=== PATIENT | male | born 1975 | race Caucasian/White ===

== ENCOUNTER 2023-09-29 20:06 | Inpatient (IN) | payer MEDICAID ==
[~2023-09-29] VITALS: Ht 172.7 cm; Wt 90.3 kg
[2023-09-29 20:42] LABS: BASOPHILS % (AUTO) 0.8 % (0.0-2.0); EOSINOPHILS % (AUTO) 0.8 % (1.0-6.0); HEMATOCRIT 46.1 % (41-53); HEMOGLOBIN 15.7 g/dL (13.5-17.5); LYMPHOCYTES # (AUTO) 2.3 K/uL (1.0-4.8); LYMPHOCYTES % (AUTO) 21.6 % (22.0-44.0); MEAN CORPUSCULAR HEMOGLOBIN 30.1 pg (26.0-34.0); MEAN CORPUSCULAR VOLUME 89 fL (80-100); MONOCYTES # (AUTO) 0.6 K/uL (0.1-1.0); MONOCYTES % (AUTO) 5.4 % (2.0-9.0); NEUTROPHILS # (AUTO) 7.7 K/uL (1.8-7.7); NEUTROPHILS % (AUTO) 71.4 % (40.0-70.0); PLATELET COUNT (AUTO) 223 K/uL (150-450); RED BLOOD CELL COUNT(AUTO) 5.21 MIL/uL (4.50-5.90); WHITE BLOOD COUNT (AUTO) 10.8 K/uL (4.5-11.0)
[2023-09-29 20:50] LABS: ANION GAP 10 mmol/L (8-16); CALCIUM, TOTAL 9.5 mg/dL (8.8-10.5); CARBON DIOXIDE 27 mmol/L (22-29); CHLORIDE 101 mmol/L (98-107); CREATININE 1.13 mg/dL (0.60-1.30); GLOMERULAR FILTR. RATE CALC > 60 mL/min (>60); GLUCOSE,RANDOM 117 mg/dL (70-110); POTASSIUM 4.1 mmol/L (3.5-5.1); SODIUM SERUM 138 mmol/L (136-145); UREA NITROGEN, BLOOD 18 mg/dL (7-18)
[2023-09-29 20:58] LABS: LACTIC ACID 1.2 mmol/L (0.4-2.0)
[2023-09-29 20:59] LABS: ALCOHOL, BLOOD (SERUM) < 3 mg/dL (0-10); TROPONIN I-HIGH SENSITIVITY Less Than 4 ng/L (<76)
[2023-09-29] MEDS ORDERED: ZOLPIDEM TARTRATE 10 MG TABLET PO PRN (21:00)
[2023-09-29] MEDS ORDERED: HALOPERIDOL 5 MG TABLET PO PRN (21:00)
[2023-09-29 21:01] LABS: ACETAMINOPHEN < 2 mcg/mL (10-30); ALANINE AMINOTRANSFERASE 27 U/L (12-78); ALBUMIN 4.2 g/dL (3.4-5.0); ALKALINE PHOSPHATASE 77 U/L (46-116); ASPARTATE AMINOTRANSFERASE 21 U/L (15-37); BILIRUBIN,TOTAL 0.4 mg/dL (0.1-1.0); CREATINE KINASE, TOTAL ONLY 76 U/L (39-308); LIPASE 27 U/L (16-77); TOTAL PROTEIN, SERUM 8.7 g/dL (6.4-8.2)
[2023-09-29 21:05] LABS: SALICYLATE 2.7 mg/dL (2.8-20.0)
[2023-09-29 21:11] LABS: APPEARANCE,URINE CLEAR (CLEAR); BILIRUBIN,URINE NEGATIVE (NEGATIVE); COLOR,URINE LIGHT YELLOW (YELLOW); GLUCOSE, URINE (UA) NEGATIVE (NEGATIVE); KETONES,URINE NEGATIVE (NEGATIVE); LEUKOCYTE ESTERASE ,URINE NEGATIVE (NEGATIVE); NITRATE,URINE NEGATIVE (NEGATIVE); OCCULT BLOOD,URINE NEGATIVE (NEGATIVE); PROTEIN,URINE NEGATIVE (NEGATIVE); SPECIFIC GRAVITIY, URINE 1.018 (1.003-1.030); UROBILINOGEN,URINE <=1.0 mg/dL (<=1.0)
[2023-09-29 21:14] LABS: BACTERIA,URINE None Seen /HPF (None Seen); COVID AG,FIA SOURCE NASAL SWAB; RBC,URINE None Seen /HPF (0-2); SQUAMOUS EPITHELIAL CELL,UR None Seen /LPF (None Seen); WBC,URINE None Seen /HPF (0-5)
[2023-09-29 21:18] LABS: ALCOHOL, URINE DRUG SCREEN NEGATIVE (NEGATIVE); AMPHET/METH SCREEN,URINE NEGATIVE (NEGATIVE); BARBITURATE SCREEN, URINE NEGATIVE (NEGATIVE); BENZODIAZEPINES SCREEN,URINE NEGATIVE (NEGATIVE); CANNABINOID SCREEN,URINE POSITIVE (NEGATIVE); COCAINE SCREEN,URINE NEGATIVE (NEGATIVE); METHADONE SCREEN, URINE NEGATIVE (NEGATIVE); OPIATE SCREEN,URINE NEGATIVE (NEGATIVE); PHENCYCLIDINE SCREEN,URINE NEGATIVE (NEGATIVE)
[2023-09-29 21:28] LABS: SARS-COV2 (COVID) ANTIGEN,FIA Negative (Negative)
[2023-09-30 04:47] VITALS: BP 122/67; PULSE 72; RESP 17; TEMP 97.1; O2SAT 98
[2023-09-30 08:26] VITALS: BP 112/58; PULSE 63; RESP 18; TEMP 97.9; O2SAT 97
[2023-09-30] MEDS: FLUoxetine HCL 20 MG CAPSULE PO SCH (11:33)
[2023-09-30] MEDS ORDERED: PETROLATUM,WHITE 28 GM JELLY TP PRN (13:15)
[2023-09-30] MEDS ORDERED: GuaiFENesin/D-METHORPHAN [SUGAR-FREE] 200-20MG/10 ML SYRUP UDCUP PO PRN (13:15)
[2023-09-30] MEDS ORDERED: ONDANSETRON HCL 4 MG TABLET PO PRN (13:15)
[2023-09-30] MEDS ORDERED: MAGNESIUM HYDROXIDE SUSPENSION 30 ML UDCUP PO PRN (13:15)
[2023-09-30] MEDS ORDERED: ALBUTEROL SULFATE HFA 90 MCG/PUFF 8 GM INHALER IH PRN (13:15)
[2023-09-30] MEDS ORDERED: CloNIDine HCL 0.1 MG TABLET PO PRN (13:15)
[2023-09-30] MEDS ORDERED: DOCUSATE SODIUM 100 MG CAPSULE PO PRN (13:15)
[2023-09-30] MEDS ORDERED: MAG HYDROX/ALUMINUM HYD/SIMETH ES 30 ML SUSPENSION UDCUP PO PRN (13:15)
[2023-09-30] MEDS ORDERED: IBUPROFEN 400 MG TABLET PO PRN (13:15)
[2023-09-30] MEDS ORDERED: LOPERAMIDE HCL 2 MG CAPSULE PO PRN (13:15)
[2023-09-30] MEDS: LORazepam 2 MG TABLET PO PRN (16:13)
[2023-09-30] MEDS: RisperiDONE 2 MG TABLET PO SCH (16:13)
[2023-09-30 21:03] VITALS: BP 99/56; PULSE 75; RESP 18; TEMP 97.3; O2SAT 98
[2023-10-01 08:15] VITALS: BP 108/62; PULSE 65; RESP 18; TEMP 97.8; O2SAT 97
[2023-10-01 09:06] LABS: HEMOGLOBIN A1C 5.5 % (3.8-5.6)
[2023-10-01 09:27] LABS: THYROID STIMULATING HORMONE 1.62 uIU/mL (0.36-3.74)
[2023-10-01 09:38] LABS: CHOL/HDL RATIO 3.9 (4.2-7.3)
[2023-10-01 21:02] VITALS: BP 107/88; PULSE 76; RESP 17; TEMP 97.6; O2SAT 97
[2023-10-02 10:17] VITALS: BP 100/63; PULSE 63; RESP 17; TEMP 97.3; O2SAT 97
[2023-10-02 20:34] VITALS: BP 123/83; PULSE 73; RESP 19; TEMP 95.7; O2SAT 97
[2023-10-03 08:28] VITALS: BP 118/63; PULSE 71; RESP 17; TEMP 97.7; O2SAT 96
[2023-10-03 20:18] VITALS: BP 123/69; PULSE 81; RESP 18; TEMP 98.2; O2SAT 97
[2023-10-04 08:34] VITALS: BP 112/65; PULSE 69; RESP 18; TEMP 97.8; O2SAT 97
[2023-10-04] MEDS: NICOTINE 14 MG/24 HOUR PATCH TD PRN (10:01)
[2023-10-04] MEDS: ACETAMINOPHEN 325 MG TABLET PO PRN (15:37)
[2023-10-04 15:43] VITALS: RESP 19
[2023-10-04 15:54] VITALS: RESP 17
[2023-10-04 16:37] VITALS: RESP 16
[2023-10-04 20:28] VITALS: BP 115/74; PULSE 82; RESP 18; TEMP 98.2; O2SAT 96
[2023-10-05 08:31] VITALS: BP 108/63; PULSE 69; RESP 18; TEMP 97.8; O2SAT 96
[2023-10-05 20:42] VITALS: BP 116/75; PULSE 79; RESP 18; TEMP 97.8; O2SAT 98
[2023-10-06 08:53] VITALS: BP 110/62; PULSE 67; RESP 18; TEMP 97.8; O2SAT 97
[2023-10-06 20:37] VITALS: BP 119/76; PULSE 76; RESP 18; TEMP 97.6
[2023-10-07 09:05] VITALS: BP 112/16; PULSE 70; RESP 16; TEMP 97.5; O2SAT 96
[2023-10-07] MEDS ORDERED: RISP-32 PO (12:18)
[2023-10-07] MEDS ORDERED: FLUO-177 PO (12:22)
[2023-10-08] MEDS ORDERED: FLUO20CA36 PO (06:11)
[2023-10-08] MEDS ORDERED: RISP2TAB45 PO (06:11)
== END 2023-10-07 16:59 | disposition home or self-care (01) | DRG 750 ==
LOC: EMS 20:09 → B2S 09-30 02:13
PROVIDERS: ADMIT Psychiatry & Neurology Child & Adolescent Psychiatry; ATTEND Psychiatry & Neurology Child & Adolescent Psychiatry
PROC: GZHZZZZ Group Psychotherapy (ICD-10-PCS; principal; 2023-10-01)
PROC: GZ52ZZZ Individual Psychotherapy, Cognitive (ICD-10-PCS; 2023-10-01)
DX: F25.1 Schizoaffective disorder, depressive type (principal); G92.9 Unspecified toxic encephalopathy; I95.9 Hypotension, unspecified; R45.851 Suicidal ideations; F11.10 Opioid abuse, uncomplicated; Z20.822 Contact with and (suspected) exposure to COVID-19; R73.9 Hyperglycemia, unspecified; T50.902A Poisoning by unspecified drugs, medicaments and biological substances, intentional self-harm, initial encounter; Z79.899 Other long term (current) drug therapy; Y92.89 Other specified places as the place of occurrence of the external cause
CPT/HCPCS: 80053; 80061; 80307; 81001; 82550; 83036; 83605; 83690; 84443; 84484; 85025; 93005; G0480; G0481

== ENCOUNTER 2024-01-17 23:48 | Inpatient (IN) | payer MEDICAID, OTHER ==
[~2024-01-17] VITALS: Ht 172.7 cm; Wt 117.2 kg
[~2024-01-17 23:48] MED LIST: FLUO-177 PO; FLUO-418 PO; RISP-32 PO; RISP2TAB45 PO
[2024-01-18 00:02] VITALS: O2SAT 96
[2024-01-18 02:54] LABS: BASOPHILS % (AUTO) 0.8 % (0.0-2.0); EOSINOPHILS % (AUTO) 1.7 % (1.0-6.0); HEMATOCRIT 45.9 % (41-53); HEMOGLOBIN 15.3 g/dL (13.5-17.5); LYMPHOCYTES # (AUTO) 3.2 K/uL (1.0-4.8); LYMPHOCYTES % (AUTO) 24.8 % (22.0-44.0); MEAN CORPUSCULAR HEMOGLOBIN 29.9 pg (26.0-34.0); MEAN CORPUSCULAR HGB CONC 33.4 G/dL (31.0-37.0); MEAN CORPUSCULAR VOLUME 89 fL (80-100); MONOCYTES # (AUTO) 0.8 K/uL (0.1-1.0); MONOCYTES % (AUTO) 6.5 % (2.0-9.0); NEUTROPHILS # (AUTO) 8.5 K/uL (1.8-7.7); NEUTROPHILS % (AUTO) 66.2 % (40.0-70.0); PLATELET COUNT (AUTO) 278 K/uL (150-450); RED BLOOD CELL COUNT(AUTO) 5.13 MIL/uL (4.50-5.90); RED CELL DISTRIBUTION WIDTH 14.6 % (11.5-14.5); WHITE BLOOD COUNT (AUTO) 12.8 K/uL (4.5-11.0)
[2024-01-18 03:04] LABS: ANION GAP 14 mmol/L (8-16); CALCIUM, TOTAL 9.2 mg/dL (8.8-10.5); CARBON DIOXIDE 24 mmol/L (22-29); CHLORIDE 99 mmol/L (98-107); CREATININE 1.36 mg/dL (0.60-1.30); GLOMERULAR FILTR. RATE CALC 56 mL/min (>60); GLUCOSE,RANDOM 114 mg/dL (70-110); POTASSIUM 3.8 mmol/L (3.5-5.1); SODIUM SERUM 137 mmol/L (136-145); UREA NITROGEN, BLOOD 24 mg/dL (7-18)
[2024-01-18 03:13] LABS: ALCOHOL, BLOOD (SERUM) < 3 mg/dL (0-10)
[2024-01-18 03:27] LABS: PH,URINE DRUG SCREEN 5.5 (5.0-8.0)
[2024-01-18 03:35] LABS: ALCOHOL, URINE DRUG SCREEN NEGATIVE (NEGATIVE); AMPHET/METH SCREEN,URINE POSITIVE (NEGATIVE); BARBITURATE SCREEN, URINE NEGATIVE (NEGATIVE); BENZODIAZEPINES SCREEN,URINE NEGATIVE (NEGATIVE); CANNABINOID SCREEN,URINE POSITIVE (NEGATIVE); COCAINE SCREEN,URINE NEGATIVE (NEGATIVE); METHADONE SCREEN, URINE NEGATIVE (NEGATIVE); OPIATE SCREEN,URINE NEGATIVE (NEGATIVE); PHENCYCLIDINE SCREEN,URINE NEGATIVE (NEGATIVE)
[2024-01-18] MEDS: RisperiDONE CONC 2 MG/2 ML SOLUTION ORAL.SYG PO ONE (03:45)
[2024-01-18] MEDS ORDERED: HALOPERIDOL 5 MG TABLET PO PRN (04:00)
[2024-01-18] MEDS ORDERED: ZOLPIDEM TARTRATE 10 MG TABLET PO PRN (04:00)
[2024-01-18] MEDS ORDERED: LORazepam 2 MG TABLET PO PRN (04:00)
[2024-01-18 05:05] LABS: APPEARANCE,URINE TURBID (CLEAR); BILIRUBIN,URINE NEGATIVE (NEGATIVE); COLOR,URINE LIGHT ORANGE (YELLOW); GLUCOSE, URINE (UA) NEGATIVE (NEGATIVE); KETONES,URINE NEGATIVE (NEGATIVE); LEUKOCYTE ESTERASE ,URINE NEGATIVE (NEGATIVE); NITRATE,URINE NEGATIVE (NEGATIVE); OCCULT BLOOD,URINE NEGATIVE (NEGATIVE); PH,URINE 5.5 (5.0-8.0); PROTEIN,URINE 30-70 mg/dL (NEGATIVE); SPECIFIC GRAVITIY, URINE 1.036 (1.003-1.030); UROBILINOGEN,URINE <=1.0 mg/dL (<=1.0)
[2024-01-18 06:32] LABS: COVID AG,FIA SOURCE NASAL SWAB
[2024-01-18 07:42] LABS: SARS-COV2 (COVID) ANTIGEN,FIA Negative (Negative)
[2024-01-18 08:30] VITALS: BP 111/74; PULSE 81; RESP 17; TEMP 97.4; O2SAT 99
[2024-01-18] MEDS ORDERED: ONDANSETRON HCL 4 MG TABLET PO PRN (09:00)
[2024-01-18] MEDS ORDERED: DOCUSATE SODIUM 100 MG CAPSULE PO PRN (09:00)
[2024-01-18] MEDS ORDERED: CloNIDine HCL 0.1 MG TABLET PO PRN (09:00)
[2024-01-18] MEDS ORDERED: BACITRACIN 28 GM OINTMENT TP PRN (09:00)
[2024-01-18] MEDS ORDERED: BENZOCAINE/MENTHOL LOZENGE PO PRN (09:00)
[2024-01-18] MEDS ORDERED: LOPERAMIDE HCL 2 MG CAPSULE PO PRN (09:00)
[2024-01-18] MEDS ORDERED: MAGNESIUM HYDROXIDE SUSPENSION 30 ML UDCUP PO PRN (09:00)
[2024-01-18] MEDS ORDERED: ACETAMINOPHEN 325 MG TABLET PO PRN (09:00)
[2024-01-18] MEDS ORDERED: ALBUTEROL SULFATE HFA 90 MCG/PUFF 8 GM INHALER IH PRN (09:00)
[2024-01-18] MEDS ORDERED: MAG HYDROX/ALUMINUM HYD/SIMETH ES 30 ML SUSPENSION UDCUP PO PRN (09:00)
[2024-01-18] MEDS ORDERED: OMEPRAZOLE 20 MG CAPSULE PO PRN (09:00)
[2024-01-18] MEDS ORDERED: PETROLATUM,WHITE 28 GM JELLY TP PRN (09:00)
[2024-01-18] MEDS: NICOTINE 21 MG/24 HOUR PATCH TD SCH (09:45)
[2024-01-18] MEDS: OLANZapine 10 MG TABLET PO SCH (20:12)
[2024-01-18 20:24] VITALS: BP 115/61; PULSE 79; RESP 20; TEMP 97.3; O2SAT 97
[2024-01-19 08:33] VITALS: BP 142/69; PULSE 71; RESP 18; TEMP 97.2; O2SAT 96
[2024-01-19] MEDS: BuPROPion HCL XL 150 MG ER TABLET PO SCH (09:04)
[2024-01-19 20:25] VITALS: BP 107/68; PULSE 76; RESP 17; TEMP 98; O2SAT 98
[2024-01-20 08:21] VITALS: BP 121/61; PULSE 68; RESP 18; TEMP 97.4; O2SAT 98
[2024-01-20] MEDS ORDERED: NICOTINE 21 MG/24 HOUR PATCH TD PRN (09:30)
[2024-01-20 21:16] VITALS: BP 119/82; PULSE 67; RESP 18; TEMP 97.6; O2SAT 98
[2024-01-21 09:27] VITALS: BP 108/60; PULSE 67; RESP 17; TEMP 97.9; O2SAT 97
[2024-01-21 22:05] VITALS: BP 106/62; PULSE 71; RESP 17; TEMP 97.2; O2SAT 97
[2024-01-22 08:25] VITALS: BP 100/69; PULSE 68; RESP 18; TEMP 96.8; O2SAT 97
[2024-01-22] MEDS: ETHYL ALCOHOL 62% ANTISEPTIC NASAL SANITIZER 0.6 ML AMPUL NASAL SCH (20:20)
[2024-01-22 20:54] VITALS: BP 110/64; PULSE 74; RESP 18; TEMP 97; O2SAT 98
[2024-01-22] MEDS: CHLORHEXIDINE GLUCONATE 2% TOWELETTE [2'S/6'S] TP SCH (21:15)
[2024-01-23 08:54] VITALS: BP 122/67; PULSE 70; RESP 17; TEMP 96.9; O2SAT 96
[2024-01-23 21:13] VITALS: BP 109/74; PULSE 80; RESP 17; TEMP 97.6; O2SAT 96
[2024-01-24 10:00] VITALS: BP 100/60; PULSE 77; RESP 18; TEMP 97.2; O2SAT 97
[2024-01-24 20:46] VITALS: BP 150/150; PULSE 95; RESP 16; TEMP 97.6; O2SAT 97
[2024-01-25 08:35] VITALS: BP 127/68; PULSE 81; RESP 18; TEMP 97.7; O2SAT 96
[2024-01-25 20:42] VITALS: BP 109/60; RESP 19; TEMP 98; O2SAT 100
[2024-01-26 08:27] VITALS: BP 117/72; PULSE 76; RESP 17; TEMP 97.5; O2SAT 96
[2024-01-26 20:40] VITALS: BP 121/75; PULSE 78; RESP 16; TEMP 97.3; O2SAT 95
[2024-01-27 08:11] VITALS: BP 116/72; PULSE 74; RESP 17; TEMP 97.2; O2SAT 97
[2024-01-27 20:35] VITALS: BP 144/80; PULSE 87; RESP 20; TEMP 97.9; O2SAT 96
[2024-01-28 08:17] VITALS: BP 112/67; PULSE 69; RESP 17; TEMP 97; O2SAT 96
[2024-01-28 21:03] VITALS: BP 104/67; PULSE 95; RESP 16; TEMP 97.2; O2SAT 96
[2024-01-28] MEDS: IBUPROFEN 600 MG TABLET PO PRN (23:11)
[2024-01-29 08:41] VITALS: BP 100/62; PULSE 71; RESP 18; TEMP 96.7; O2SAT 97
[2024-01-29 20:30] VITALS: BP 118/69; PULSE 87; RESP 17; TEMP 97; O2SAT 97
[2024-01-30 08:58] VITALS: BP 128/78; PULSE 82; RESP 16; TEMP 97.5; O2SAT 96
[2024-01-30 20:47] VITALS: BP 108/70; PULSE 77; RESP 18; TEMP 96.6; O2SAT 95
[2024-01-31 09:02] VITALS: BP 113/71; PULSE 84; RESP 18; TEMP 98; O2SAT 97
[2024-01-31] MEDS ORDERED: BUPR-514 PO (12:09)
[2024-01-31] MEDS ORDERED: OLAN10TA74 PO (12:10)
== END 2024-01-31 14:22 | disposition home or self-care (01) | DRG 750 ==
LOC: EMS 23:50 → B2S 01-18 07:02 → UNDOADMIN 01-18 07:03 → B2S 01-18 07:03
PROVIDERS: ADMIT Psychiatry & Neurology Psychiatry; ATTEND Psychiatry & Neurology Psychiatry
DX: F20.9 Schizophrenia, unspecified (principal); R45.851 Suicidal ideations; E66.9 Obesity, unspecified; G47.00 Insomnia, unspecified; N28.9 Disorder of kidney and ureter, unspecified; Z20.822 Contact with and (suspected) exposure to COVID-19; K59.00 Constipation, unspecified; F15.10 Other stimulant abuse, uncomplicated; F32.A Depression, unspecified; F41.9 Anxiety disorder, unspecified; F12.90 Cannabis use, unspecified, uncomplicated; Z87.891 Personal history of nicotine dependence; Z68.39 Body mass index [BMI] 39.0-39.9, adult
CPT/HCPCS: 80048; 80307; 81003; 85025; 87081; 99285; G0480

== ENCOUNTER 2024-02-18 11:14 | Emergency (ER) | payer MEDICAID, OTHER ==
[~2024-02-18] VITALS: Ht 170.2 cm; Wt 96.0 kg
[~2024-02-18 11:14] MED LIST changes: +BUPR-514 PO; -FLUO-177 PO; -FLUO-418 PO; +OLAN10TA74 PO; -RISP-32 PO; -RISP2TAB45 PO
[2024-02-18 11:25] VITALS: BP 143/88; PULSE 85; RESP 16; TEMP 98.7; O2SAT 98
[2024-02-18 11:59] LABS: BASOPHILS % (AUTO) 0.8 % (0.0-2.0); EOSINOPHILS % (AUTO) 4.2 % (1.0-6.0); HEMATOCRIT 42.4 % (41-53); HEMOGLOBIN 13.9 g/dL (13.5-17.5); LYMPHOCYTES # (AUTO) 1.3 K/uL (1.0-4.8); LYMPHOCYTES % (AUTO) 17.6 % (22.0-44.0); MEAN CORPUSCULAR HEMOGLOBIN 29.9 pg (26.0-34.0); MEAN CORPUSCULAR HGB CONC 32.8 G/dL (31.0-37.0); MEAN CORPUSCULAR VOLUME 91 fL (80-100); MONOCYTES # (AUTO) 0.5 K/uL (0.1-1.0); MONOCYTES % (AUTO) 7.1 % (2.0-9.0); NEUTROPHILS # (AUTO) 5.1 K/uL (1.8-7.7); NEUTROPHILS % (AUTO) 70.3 % (40.0-70.0); PLATELET COUNT (AUTO) 203 K/uL (150-450); RED BLOOD CELL COUNT(AUTO) 4.64 MIL/uL (4.50-5.90); RED CELL DISTRIBUTION WIDTH 14.3 % (11.5-14.5); WHITE BLOOD COUNT (AUTO) 7.2 K/uL (4.5-11.0)
[2024-02-18 12:08] LABS: ANION GAP 8 mmol/L (8-16); CALCIUM, TOTAL 8.5 mg/dL (8.8-10.5); CARBON DIOXIDE 31 mmol/L (22-29); CHLORIDE 104 mmol/L (98-107); CREATININE 0.97 mg/dL (0.60-1.30); GLOMERULAR FILTR. RATE CALC > 60 mL/min (>60); GLUCOSE,RANDOM 92 mg/dL (70-110); POTASSIUM 4.2 mmol/L (3.5-5.1); SODIUM SERUM 142 mmol/L (136-145); UREA NITROGEN, BLOOD 19 mg/dL (7-18)
[2024-02-18 12:39] LABS: ALCOHOL, BLOOD (SERUM) < 3 mg/dL (0-10)
[2024-02-18] MEDS: ACETAMINOPHEN 325 MG TABLET PO ONE (13:18)
[2024-02-18 13:55] LABS: PH,URINE DRUG SCREEN 7.5 (5.0-8.0)
[2024-02-18 13:56] LABS: COVID AG,FIA SOURCE NASAL SWAB
[2024-02-18 14:08] LABS: ALCOHOL, URINE DRUG SCREEN NEGATIVE (NEGATIVE); AMPHET/METH SCREEN,URINE POSITIVE (NEGATIVE); BARBITURATE SCREEN, URINE NEGATIVE (NEGATIVE); BENZODIAZEPINES SCREEN,URINE NEGATIVE (NEGATIVE); CANNABINOID SCREEN,URINE POSITIVE (NEGATIVE); COCAINE SCREEN,URINE NEGATIVE (NEGATIVE); METHADONE SCREEN, URINE NEGATIVE (NEGATIVE); OPIATE SCREEN,URINE NEGATIVE (NEGATIVE); PHENCYCLIDINE SCREEN,URINE NEGATIVE (NEGATIVE)
[2024-02-18 14:22] LABS: SARS-COV2 (COVID) ANTIGEN,FIA Negative (Negative)
== END 2024-02-18 19:09 | disposition home or self-care (01) ==
LOC: EMS 11:14
DX: F20.9 Schizophrenia, unspecified (principal); R45.851 Suicidal ideations; F17.210 Nicotine dependence, cigarettes, uncomplicated; F19.10 Other psychoactive substance abuse, uncomplicated; Z20.822 Contact with and (suspected) exposure to COVID-19
CPT/HCPCS: 99283; 87426; 80048; 85025; 36415; 80307; G0480

== ENCOUNTER 2024-02-19 05:25 | Inpatient (IN) | payer MEDICAID ==
[~2024-02-19] VITALS: Ht 175.3 cm; Wt 122.3 kg
[2024-02-19] MEDS ORDERED: HALOPERIDOL 5 MG TABLET PO PRN (05:30)
[2024-02-19] MEDS ORDERED: ZOLPIDEM TARTRATE 10 MG TABLET PO PRN (05:30)
[2024-02-19 06:55] VITALS: BP 134/69; PULSE 97; RESP 18; TEMP 97.6; O2SAT 98
[2024-02-19] MEDS ORDERED: NICOTINE POLACRILEX 2 MG LOZENGE PO PRN (07:45)
[2024-02-19 08:20] VITALS: RESP 18
[2024-02-19] MEDS: BACITRACIN 28 GM OINTMENT TP SCH (09:58)
[2024-02-19] MEDS ORDERED: ONDANSETRON 4 MG TABLET PO PRN (10:30)
[2024-02-19] MEDS ORDERED: DOCUSATE SODIUM 100 MG CAPSULE PO PRN (10:30)
[2024-02-19] MEDS ORDERED: MAGNESIUM HYDROXIDE SUSPENSION 30 ML UDCUP PO PRN (10:30)
[2024-02-19] MEDS ORDERED: IBUPROFEN 600 MG TABLET PO PRN (10:30)
[2024-02-19] MEDS ORDERED: LOPERAMIDE HCL 2 MG CAPSULE PO PRN (10:30)
[2024-02-19] MEDS ORDERED: BENZOCAINE/MENTHOL LOZENGE PO PRN (10:30)
[2024-02-19] MEDS ORDERED: CloNIDine HCL 0.1 MG TABLET PO PRN (10:30)
[2024-02-19] MEDS ORDERED: PETROLATUM,WHITE 28 GM JELLY TP PRN (10:30)
[2024-02-19] MEDS ORDERED: ACETAMINOPHEN 325 MG TABLET PO PRN (10:30)
[2024-02-19] MEDS ORDERED: ALBUTEROL SULFATE HFA 90 MCG/PUFF 8 GM INHALER IH PRN (10:30)
[2024-02-19] MEDS ORDERED: OMEPRAZOLE 20 MG CAPSULE PO PRN (10:30)
[2024-02-19] MEDS ORDERED: MAG HYDROX/ALUMINUM HYD/SIMETH ES 30 ML SUSPENSION UDCUP PO PRN (10:30)
[2024-02-19] MEDS ORDERED: BACITRACIN 28 GM OINTMENT TP PRN (10:30)
[2024-02-19] MEDS: OLANZapine 10 MG TABLET PO SCH (20:35)
[2024-02-20 08:19] VITALS: BP 102/63; PULSE 69; RESP 16; TEMP 97.2; O2SAT 96
[2024-02-20] MEDS: BuPROPion HCL XL 150 MG ER TABLET PO SCH (09:05)
[2024-02-20] MEDS: ETHYL ALCOHOL 62% ANTISEPTIC NASAL SANITIZER 0.6 ML AMPUL NASAL SCH (09:45)
[2024-02-20] MEDS: CHLORHEXIDINE GLUCONATE 2% TOWELETTE [2'S/6'S] TP SCH (21:20)
[2024-02-20 21:57] VITALS: BP 106/62; PULSE 74; RESP 16; TEMP 97.5; O2SAT 97
[2024-02-21 08:22] VITALS: BP 116/69; PULSE 76; RESP 19; TEMP 96.6; O2SAT 97
[2024-02-21 10:01] LABS: HEMOGLOBIN A1C 5.6 % (3.8-5.6)
[2024-02-21 10:48] LABS: CHOL/HDL RATIO 3.5 (4.2-7.3); FREE T4 (FREE THYROXINE) 1.19 ng/dL (0.76-1.46); THYROID STIMULATING HORMONE 2.2 uIU/mL (0.36-3.74)
[2024-02-21 20:45] VITALS: BP 111/74; PULSE 81; RESP 17; TEMP 97.2; O2SAT 95
[2024-02-22 08:20] VITALS: BP 114/65; PULSE 80; RESP 18; TEMP 97.4; O2SAT 98
[2024-02-22 21:26] VITALS: BP 99/74; PULSE 70; RESP 18; TEMP 97.3; O2SAT 98
[2024-02-23 09:58] VITALS: BP 101/69; PULSE 80; RESP 18; TEMP 97.6; O2SAT 96
[2024-02-23 20:50] VITALS: BP 115/63; PULSE 88; RESP 16; TEMP 97.5; O2SAT 96
[2024-02-24 08:45] VITALS: BP 107/60; PULSE 70; RESP 18; TEMP 97.3; O2SAT 99
[2024-02-24 20:36] VITALS: BP 110/63; PULSE 72; RESP 17; TEMP 98.1; O2SAT 98
[2024-02-25 08:40] VITALS: BP 143/81; PULSE 75; RESP 18; TEMP 97.2; O2SAT 98
[2024-02-25 20:37] VITALS: BP 126/77; PULSE 86; RESP 17; TEMP 98; O2SAT 97
[2024-02-26 08:27] VITALS: BP 125/69; PULSE 70; RESP 18; TEMP 98.3; O2SAT 97
[2024-02-26 22:23] VITALS: BP 123/63; PULSE 79; RESP 18; TEMP 98.3
[2024-02-27 15:39] VITALS: BP 131/66; PULSE 76; RESP 18; TEMP 97; O2SAT 97
[2024-02-27 20:09] VITALS: BP 120/77; PULSE 83; RESP 18; TEMP 97.3; O2SAT 97
[2024-02-28 08:57] VITALS: BP 126/80; PULSE 85; RESP 17; TEMP 98; O2SAT 99
[2024-02-28 20:38] VITALS: BP 128/76; PULSE 86; RESP 16; TEMP 98.2; O2SAT 99
[2024-02-28] MEDS: LORazepam 2 MG TABLET PO PRN (23:30)
[2024-02-29 10:25] VITALS: BP 111/86; PULSE 87; RESP 17; TEMP 97.3; O2SAT 98
[2024-02-29 21:00] VITALS: BP 117/83; PULSE 94; RESP 18; TEMP 97; O2SAT 98
[2024-03-01 08:34] VITALS: BP 107/61; PULSE 74; RESP 19; TEMP 97.7; O2SAT 97
[2024-03-01 21:24] VITALS: BP 129/83; PULSE 96; RESP 18; TEMP 97.3; O2SAT 97
[2024-03-02 08:15] VITALS: BP 106/65; PULSE 72; RESP 20; TEMP 98; O2SAT 97
[2024-03-02 20:25] VITALS: BP 117/75; PULSE 99; RESP 17; TEMP 96.1; O2SAT 95
[2024-03-03 08:35] VITALS: BP 126/69; PULSE 75; RESP 18; TEMP 97.8; O2SAT 97
[2024-03-03 21:16] VITALS: BP 129/77; PULSE 84; RESP 18; TEMP 97.1; O2SAT 98
[2024-03-04 08:26] VITALS: BP 116/63; PULSE 73; RESP 16; TEMP 97.9; O2SAT 98
[2024-03-04 20:00] VITALS: BP 121/75; PULSE 95; RESP 18; TEMP 97.1; O2SAT 98
[2024-03-05 08:32] VITALS: BP 121/68; PULSE 78; RESP 17; TEMP 97; O2SAT 95
== END 2024-03-05 17:16 | disposition home or self-care (01) | DRG 751 ==
LOC: B2S 05:49
PROVIDERS: ADMIT Psychiatry & Neurology Psychiatry; ATTEND Psychiatry & Neurology Psychiatry
DX: F33.9 Major depressive disorder, recurrent, unspecified (principal); F25.9 Schizoaffective disorder, unspecified; R45.851 Suicidal ideations; F41.9 Anxiety disorder, unspecified; K59.00 Constipation, unspecified; E66.9 Obesity, unspecified; G47.00 Insomnia, unspecified; F12.90 Cannabis use, unspecified, uncomplicated; Z68.39 Body mass index [BMI] 39.0-39.9, adult
CPT/HCPCS: 80061; 83036; 84439; 84443; 87081